=== PATIENT | male | born 1975 | race Two or more races ===

== ENCOUNTER 2025-05-20 06:00 | Day surgery (SDC) | payer OTHER ==
[2025-05-15 15:47] VITALS: BP 134/93
[~2025-05-20] VITALS: Ht 177.8 cm; Wt 108.0 kg
[~2025-05-20 06:00] MED LIST: LIPOFEN150 MG PO
[2025-05-20] MEDS ORDERED: ENOXAPARIN SODIUM 40 MG/0.4 ML SYRINGE SUBCUTANEO ONE ×2 (07:05→08:30)
[2025-05-20] MEDS ORDERED: CEFTRIAXONE SODIUM 2,000 MG VIAL ONE (07:05)
[2025-05-20] MEDS ORDERED: METRONIDAZOLE/SODIUM CHLORIDE 500 MG/100 ML PIGGYBACK IV ONE ×2 (07:06→08:30)
[2025-05-20] MEDS ORDERED: CEFTRIAXONE SODIUM 2,000 MG VIAL IV ONE (08:30)
[2025-05-20] MEDS ORDERED: BUPIVACAINE HCL 30 ML VIAL IJ ONE (08:30)
[2025-05-20] MEDS ORDERED: SUGAMMADEX SODIUM 200 MG/2 ML VIAL IV ONE ×2 (09:33→09:45)
[2025-05-20] MEDS ORDERED: NEURONTIN300 MG PO (09:55)
[2025-05-20] MEDS ORDERED: PERCOCET 5-3251 EACH PO (09:55)
[2025-05-20] MEDS ORDERED: POLY119PG PO (09:55)
[2025-05-20] MEDS ORDERED: CELEBREX200MG PO (09:55)
== END 2025-05-20 12:30 | disposition home or self-care (01) ==
LOC: CIR.AMB 06:00
PROVIDERS: ATTEND Surgery
DX: K43.0 Incisional hernia with obstruction, without gangrene (principal)

== ENCOUNTER 2025-07-20 10:22 | Emergency (ER) | payer OTHER ==
[~2025-07-20] VITALS: Ht 162.6 cm; Wt 68.0 kg
[~2025-07-20 10:22] MED LIST changes: +CELEBREX200MG PO; +NEURONTIN300 MG PO; +PERCOCET 5-3251 EACH PO; +POLY119PG PO
[2025-07-20 11:17] VITALS: BP 131/89; O2SAT 98
[2025-07-20] MEDS ORDERED: 0.9 % SODIUM CHLORIDE 1,000 ML IV ONE (12:00)
[2025-07-20 12:31] LABS: BASO % 0.9 % (0.1-1.2); EOS # 0.19 (0.04-0.54); EOS % 2.1 % (0.7-7.0); LYMPH # 2.50 (1.18-3.74); LYMPH % 27.7 % (19.3-53.1); MEAN PLATELET VOLUME 9.30 fl (9.4-12.4); MONO # 0.76 (0.24-0.82); MONO % 8.4 % (4.7-12.5); NEUT # 5.39 (1.56-6.13); NEUT % 59.9 % (34.0-71.1); RED CELL DISTRIBUTION WIDTH 13.6 % (11.6-14.4)
[2025-07-20 12:35] LABS: ERYTHROCYTE SEDIMENTATION RATE 7 mm/hr (0-20)
[2025-07-20 12:53] LABS: BUN CREA RATIO 13.0 (7.0-25.0); CREATININE SERUM 0.95 mg/dL (0.70-1.30); GFR 83.58; GLUCOSE FASTING 100.0 mg/dL (65-100); OSMOLALITY SERUM 277.0 MOSM/KG (275-295)
== END 2025-07-20 15:01 | disposition home or self-care (01) ==
LOC: ER 10:22
PROVIDERS: General Practice
DX: L76.34 Postprocedural seroma of skin and subcutaneous tissue following other procedure (principal)